=== PATIENT | female | born 1965 | race Caucasian/White ===

== ENCOUNTER 2018-05-19 16:00 | Day surgery (SDC) | payer OTHER ==
[2018-05-18 18:04] VITALS: BMI 29.7
--- NOTE | 2018-05-19 17:16 | OP ---
Operative Note - Note: Operative Date: 05/19/18 Pre-Operative Diagnosis: nuerogenic bladder, vesici-vaginal fistula,rec. uti, gross hematuria,spt dislodgement,tract stenosis Operation: suprapubic dil. cysto, placement of spt. fulgeration Post-Operative Diagnosis: Same as Pre-op Bleach Range Operator: Samia Tenorio Anesthesia: General Specimens Removed: sptract tissue and sp maxwell Estimated Blood Loss (mls): 20 Drains, Volume Out (mls): 0 Blood Volume Replaced (mls): 0 Fluid Volume Replaced (mls): 0 Operative Report Dictated: Yes
[2018-05-19] MEDS ORDERED: ceFAZolin SODIUM 1 GM VIAL IVPB ONE (18:21)
[2018-05-19] MEDS ORDERED: ONDANSETRON 4 MG/2 ML VIAL IVPUSH PRN (18:42)
[2018-05-19] MEDS: MORPHINE SULFATE 2 MG/ML VIAL IVPUSH PRN ×3 (18:45→19:15)
[2018-05-19 20:09] VITALS: PULSE 98
[2018-05-19 20:57] VITALS: BP 117/64; TEMP 98.7
--- NOTE | 2018-07-21 11:59 | OP ---
DATE OF OPERATION: 05/19/2018 SURGEON: Samia Tenorio MD PREOPERATIVE DIAGNOSES: Neurogenic bladder, vesicovaginal fistula, recurrent urinary tract infection, gross hematuria, dislodgement of suprapubic tract. OPERATIVE PROCEDURE: Suprapubic tract debridement, suprapubic dilatation, suprapubic Hill placement. ANESTHESIA: General. DESCRIPTION OF PROCEDURE: Under above-stated anesthesia, patient was prepped and draped in the usual sterile manner. She was placed in the supine position. An elliptical incision was made over the suprapubic tract. This was carried down through skin and subcutaneous tissue. The necrotic tract was removed at the level of the fascia. The fascial defect was repaired with 2-0 Vicryl suture ligatures. A stab incision was made in the bladder, and a 24-[place] Hill was placed into the dome of the bladder. Pursestring suture was used to anchor the Hill at the dome of the bladder. The subcutaneous tissue was closed with 3-0 Vicryl suture ligature. The skin was closed with jesus. The bladder irrigation was good. The patient tolerated the procedure well. She returned to the recovery room in good condition. Vaughn [id number]
== END 2018-05-19 20:55 | disposition home or self-care (01) ==
LOC: JASU-SURG 16:00
PROVIDERS: ATTEND Urology
PROC: 0T9B00Z Drainage of Bladder with Drainage Device, Open Approach (ICD-10-PCS; principal; 2018-05-19 15:30)
DX: T83.028A Displacement of other urinary catheter, initial encounter (principal); N31.8 Other neuromuscular dysfunction of bladder; N39.0 Urinary tract infection, site not specified; R31.0 Gross hematuria; N82.0 Vesicovaginal fistula
CPT/HCPCS: 51710; C2627; 82962; 94760

== ENCOUNTER 2023-01-19 14:36 | Inpatient (IN) | payer OTHER ==
[2023-01-19 15:13] VITALS: BMI 27.4
[2023-01-19 16:14] LABS: BASO % 0.2 % (0-2.0); EOS % 0.2 % (0-4.5); HEMATOCRIT 30.9 % (32.4-45.2); HEMOGLOBIN 10.5 GM/dL (10.7-15.3); LYMPH % 15.4 % (8-40); MCH 29.1 pg (25.7-33.7); MEAN CELL VOLUME 85.7 fl (80-96); MEAN PLT VOLUME 7.3 fl (7.5-11.1); MONO % 5.3 % (3.8-10.2); NEUT % 78.9 % (42.8-82.8); PLATELET COUNT 355 10^3/uL (134-434); RBC 3.61 M/mm3 (3.60-5.2); RDW 15.8 % (11.6-15.6)
[2023-01-19 16:24] LABS: INR 1.38 (0.83-1.09); PROTHROMBIN TIME (PATIENT) 15.9 SEC (9.7-13.0)
[2023-01-19 16:27] LABS: ACTIVATED PTT 34.6 SECONDS (25.2-36.5)
[2023-01-19 16:41] LABS: URINE APPEARANCE TURBID; URINE BILIRUBIN NEGATIVE (NEGATIVE); URINE COLOR YELLOW; URINE GLUCOSE (UA) NEGATIVE (NEGATIVE); URINE KETONE NEGATIVE (NEGATIVE); URINE LEUK ESTERASE 4+ (NEGATIVE); URINE NITRITE NEGATIVE (NEGATIVE); URINE PROTEIN 100 (NEGATIVE)
[2023-01-19 16:42] LABS: EPI CELLS 239.5 /uL (0-25.1); HYALINE CASTS 883.12 /uL (0-3.1); URINE BACTERIA 9952.4 /uL (0-1359); URINE RBC 666.2 /uL (0-23.9); URINE WBC 35961.5 /uL (0-25.8)
[2023-01-19 17:09] LABS: POTASSIUM 5.5 mmol/L (3.5-5.1)
[2023-01-19 17:14] LABS: CALCIUM 8.6 mg/dL (8.5-10.1)
[2023-01-19 17:15] LABS: ALBUMIN 2.2 g/dl (3.4-5.0); BLOOD UREA NITROGEN 37.4 mg/dL (7-18)
[2023-01-19 17:17] LABS: CREATININE 1.5 mg/dL (0.55-1.3)
[2023-01-19 17:19] LABS: BILIRUBIN,TOTAL 0.5 mg/dL (0.2-1); TOT PROT 10.4 g/dl (6.4-8.2)
[2023-01-19] MEDS ORDERED: CEFTRIAXONE 1,000 MG in DEXTROSE 5%-WATER - 50 ML IVPB ONE (17:27)
[2023-01-19] MEDS ORDERED: CEFTRIAXONE 1 GM/50 ML BAG ONE (18:00)
[2023-01-19] MEDS ORDERED: ACETAMINOPHEN 325 MG TABLET (FP) PO PRN (18:19)
[2023-01-19] MEDS ORDERED: SODIUM CHLORIDE 1,000 ML IV STA (18:21)
[2023-01-19] MEDS: LACTATED RINGERS SOLUTION 1,000 ML/1,000 ML INFUS.BAG IV SCH (18:40)
[2023-01-19] MEDS: INSULIN SLIDING SCALE (NOVOLOG) 1 VIAL SQ SCH (18:50)
[2023-01-19 19:00] LABS: POTASSIUM 3.8 mmol/L (3.5-5.1)
[2023-01-19 19:01] LABS: CALCIUM 8.6 mg/dL (8.5-10.1)
[2023-01-19 19:02] LABS: BLOOD UREA NITROGEN 41.3 mg/dL (7-18)
[2023-01-19 19:05] LABS: CREATININE 1.5 mg/dL (0.55-1.3)
[2023-01-19] MEDS ORDERED: BACITRACIN 0.9 GM PACKET ONE (21:44)
[2023-01-19] MEDS ORDERED: ATORVASTATIN CA 40 MG TABLET (FP) ONE (21:44)
[2023-01-19] MEDS ORDERED: TOPIRAMATE 100 MG TABLET ONE (21:44)
[2023-01-19] MEDS ORDERED: HEPARIN NA (PORCINE) 5,000 UNITS/ML 1ML VIAL ONE (21:45)
[2023-01-19] MEDS ORDERED: ATORVASTATIN CA 40 MG TABLET (FP) PO SCH (22:00)
[2023-01-19] MEDS ORDERED: INSULIN (LEVEMIR) 100 UNITS/ML UNITS SQ SCH (22:00)
[2023-01-19] MEDS: HEPARIN NA (PORCINE) 5,000 UNITS/ML 1ML VIAL SQ SCH (22:16)
[2023-01-19] MEDS: BACITRACIN ZINC 15 GM TUBE TOPICAL OINTMENT TP SCH (22:16)
[2023-01-19] MEDS: TOPIRAMATE 200 MG TABLET PO SCH (22:17)
[2023-01-19] MEDS: OXcarbazepine 300 MG TABLET (UD) PO SCH (22:17)
[2023-01-19] MEDS ORDERED: traMADol HCL 50 MG TABLET ONE (22:21)
[2023-01-19] MEDS: traMADol HCL 50 MG TABLET PO PRN (22:27)
[2023-01-20] MEDS ORDERED: ACETAMINOPHEN 1000 MG/100 ML BAG IVPB ONE (06:22)
[2023-01-20] MEDS ORDERED: ACETAMINOPHEN INJECTION 100 ML IVPB ONE (06:34)
[2023-01-20] MEDS: BACITRACIN ZINC 15 GM TUBE TOPICAL OINTMENT TP SCH (06:38)
[2023-01-20] MEDS: INSULIN SLIDING SCALE (NOVOLOG) 1 VIAL SQ SCH ×3 (06:38→17:06)
[2023-01-20 08:21] LABS: BASO % 0.2 % (0-2.0); EOS % 0.2 % (0-4.5); HEMATOCRIT 27.1 % (32.4-45.2); HEMOGLOBIN 9.2 GM/dL (10.7-15.3); LYMPH % 8.3 % (8-40); MCH 28.9 pg (25.7-33.7); MCHC 33.8 g/dl (32.0-36.0); MEAN CELL VOLUME 85.6 fl (80-96); MONO % 6.9 % (3.8-10.2); NEUT % 84.4 % (42.8-82.8); PLATELET COUNT 306 10^3/uL (134-434); RBC 3.17 M/mm3 (3.60-5.2); RDW 15.8 % (11.6-15.6); WHITE BLOOD COUNT 8.4 K/mm3 (4.0-10.0)
[2023-01-20 09:53] LABS: IRON SERUM 17 ug/dL (50-175)
[2023-01-20 09:54] LABS: TOTAL IRON BINDING CAPACITY 184 ug/dL (250-450)
[2023-01-20] MEDS ORDERED: CEFTRIAXONE 1 GM in DEXTROSE 5%-WATER - 50 ML IVPB SCH (10:00)
[2023-01-20] MEDS ORDERED: MULTIVITAMINS (DAILY MVI) TABLET (FP) PO SCH (10:00)
[2023-01-20] MEDS ORDERED: ASPIRIN COATED 81 MG TABLET.EC PO SCH (10:00)
[2023-01-20] MEDS ORDERED: FAMOTIDINE 20 MG TABLET PO SCH (10:00)
[2023-01-20] MEDS ORDERED: PIPERACILLIN/TAZOB 3.375 GM 3.375 GM in DEXTROSE 5%-WATER - 50 ML IVPB SCH ×2 (10:00→18:00)
[2023-01-20] MEDS ORDERED: FENOFIBRIC ACID 135 MG CAP PO SCH (10:00)
[2023-01-20] MEDS: traMADol HCL 50 MG TABLET PO PRN (10:02)
[2023-01-20] MEDS: OXcarbazepine 300 MG TABLET (UD) PO SCH (10:05)
[2023-01-20] MEDS: TOPIRAMATE 200 MG TABLET PO SCH (10:05)
[2023-01-20] MEDS ORDERED: ACETAMINOPHEN 325 MG TABLET (FP) PO PRN ×2 (10:17→20:10)
[2023-01-20] MEDS ORDERED: COLLAGENASE CLOSTRIDIUM HIST. 30 GRAMS TUBE TP SCH (10:30)
[2023-01-20 12:30] LABS: EPI CELLS 35 /uL (0-25.1); HYALINE CASTS 10 /uL (0-3.1); PH,URINE 6.5 (5.0-8.0); URINE APPEARANCE TURBID; URINE BACTERIA 2552 /uL (0-1359); URINE BILIRUBIN NEGATIVE (NEGATIVE); URINE COLOR YELLOW; URINE GLUCOSE (UA) NEGATIVE (NEGATIVE); URINE KETONE NEGATIVE (NEGATIVE); URINE LEUK ESTERASE 3+ (NEGATIVE); URINE NITRITE POSITIVE (NEGATIVE); URINE PROTEIN 2+ (NEGATIVE); URINE WBC 14119 /uL (0-25.8)
[2023-01-20 12:41] LABS: URINE RBC 519 /uL (0-23.9)
[2023-01-20 14:43] VITALS: RESP 20
[2023-01-20] MEDS ORDERED: DEXTROSE 50%-WATER 25 GM/50 ML DISP.SYRIN ONE (16:50)
[2023-01-20] MEDS ORDERED: DEXTROSE 50%-WATER - 25 GM/50 ML VIAL IVPUSH ONE (17:10)
[2023-01-20] MEDS: HEPARIN NA (PORCINE) 5,000 UNITS/ML 1ML VIAL SQ SCH (18:12)
[2023-01-20] MEDS: LACTATED RINGERS SOLUTION 1,000 ML/1,000 ML INFUS.BAG IV SCH (18:34)
[2023-01-20 20:02] LABS: BASO % 0.1 % (0-2.0); EOS % 0.4 % (0-4.5); HEMATOCRIT 26.3 % (32.4-45.2); HEMOGLOBIN 8.7 GM/dL (10.7-15.3); LYMPH % 7.4 % (8-40); MCH 28.9 pg (25.7-33.7); MEAN CELL VOLUME 87.7 fl (80-96); MEAN PLT VOLUME 7.6 fl (7.5-11.1); MONO % 5.5 % (3.8-10.2); NEUT % 86.6 % (42.8-82.8); PLATELET COUNT 258 10^3/uL (134-434); RDW 16.1 % (11.6-15.6)
[2023-01-20] MEDS ORDERED: traMADol HCL 50 MG TABLET PO PRN (20:10)
[2023-01-20] MEDS ORDERED: LACTATED RINGERS SOLUTION 1,000 ML/1,000 ML INFUS.BAG IV SCH (20:10)
[2023-01-20 20:24] LABS: POTASSIUM 3.6 mmol/L (3.5-5.1)
[2023-01-20 20:27] LABS: BLOOD UREA NITROGEN 25.4 mg/dL (7-18); CALCIUM 7.6 mg/dL (8.5-10.1)
[2023-01-20 20:31] LABS: CREATININE 1.3 mg/dL (0.55-1.3)
[2023-01-20 20:51] LABS: LACTIC ACID 2.2 mmol/L (0.4-2.0)
[2023-01-20] MEDS ORDERED: SODIUM CHLORIDE 500 ML IV STA ×2 (21:10→23:29)
[2023-01-20] MEDS ORDERED: TOPIRAMATE 100 MG TABLET PO SCH (22:00)
[2023-01-20] MEDS ORDERED: ATORVASTATIN CA 40 MG TABLET (FP) PO SCH (22:00)
[2023-01-20] MEDS ORDERED: OXcarbazepine 300 MG TABLET (UD) PO SCH (22:00)
[2023-01-20 23:19] VITALS: PULSE 93
[2023-01-21 01:47] VITALS: BP 135/57; TEMP 98.4
[2023-01-21] MEDS ORDERED: PIPERACILLIN/TAZOB 3.375 GM 3.375 GM in DEXTROSE 5%-WATER - 50 ML IVPB SCH (02:00)
[2023-01-21] MEDS ORDERED: INSULIN SLIDING SCALE (NOVOLOG) 1 VIAL SQ SCH (07:00)
[2023-01-21] MEDS ORDERED: FAMOTIDINE 20 MG TABLET PO SCH (10:00)
[2023-01-21] MEDS ORDERED: ASPIRIN COATED 81 MG TABLET.EC PO SCH (10:00)
[2023-01-21] MEDS ORDERED: MULTIVITAMINS (DAILY MVI) TABLET (FP) PO SCH (10:00)
[2023-01-21] MEDS ORDERED: COLLAGENASE CLOSTRIDIUM HIST. 30 GRAMS TUBE TP SCH (10:00)
[2023-01-21] MEDS ORDERED: FENOFIBRIC ACID 135 MG CAP PO SCH (10:00)
== END 2023-01-21 01:47 | disposition short-term general hospital (02) | DRG 463 ==
LOC: JER 14:36 → JERBED 17:28 → J7W 01-20 01:55 → J4S 01-20 17:52
PROVIDERS: ADMIT Internal Medicine; ATTEND Internal Medicine
DX: N13.6 Pyonephrosis (principal); E03.9 Hypothyroidism, unspecified; E11.9 Type 2 diabetes mellitus without complications; G81.94 Hemiplegia, unspecified affecting left nondominant side; R53.2 Functional quadriplegia; G93.41 Metabolic encephalopathy; K21.9 Gastro-esophageal reflux disease without esophagitis; K59.00 Constipation, unspecified; I25.10 Atherosclerotic heart disease of native coronary artery without angina pectoris; E55.9 Vitamin D deficiency, unspecified; G40.909 Epilepsy, unspecified, not intractable, without status epilepticus; E78.5 Hyperlipidemia, unspecified; N31.9 Neuromuscular dysfunction of bladder, unspecified; J90 Pleural effusion, not elsewhere classified; R50.9 Fever, unspecified
CPT/HCPCS: 36415; 70450-TC; 71045-TC-FY; 74176-TC; 80048; 80053; 80201; 81003; 82962; 83036; 83540; 83550; 83605; 83690; 84443; 84484; 85025; 85610; 85730; 86850; 86900; 86901; 87040; 87086; 87186; 87635; 93005; 93010; 99285-25; J1644

== ENCOUNTER 2023-07-07 08:13 | Inpatient (IN) | payer OTHER ==
[2023-07-07 08:26] VITALS: BMI 22.3
[2023-07-07] MEDS ORDERED: PIPERACILLIN/TAZOB 3.375 GM 3.375 GM/50 ML BAG IVPB ONE (08:39)
[2023-07-07] MEDS ORDERED: ACETAMINOPHEN INJECTION 100 ML IVPB ONE (08:39)
[2023-07-07] MEDS: PIPERACILLIN/TAZOB 3.375 GM 3.375 GM in DEXTROSE 5%-WATER - 50 ML IVPB ONE (08:40)
[2023-07-07] MEDS: SODIUM CHLORIDE 1,000 ML IV STA (08:40)
[2023-07-07] MEDS: ACETAMINOPHEN 1000 MG/100 ML BAG IVPB ONE (08:40)
[2023-07-07 08:45] LABS: BASO % 0.4 % (0-2.0); EOS % 0.3 % (0-4.5); HEMATOCRIT 26.8 % (32.4-45.2); HEMOGLOBIN 8.6 GM/dL (10.7-15.3); LYMPH % 11.4 % (8-40); MCH 31.6 pg (25.7-33.7); MEAN CELL VOLUME 98.6 fl (80-96); MEAN PLT VOLUME 6.3 fl (7.5-11.1); MONO % 9.6 % (3.8-10.2); NEUT % 78.3 % (42.8-82.8); PLATELET COUNT 256 10^3/uL (134-434); RBC 2.71 M/mm3 (3.60-5.2); RDW 17.2 % (11.6-15.6)
[2023-07-07 08:48] LABS: VENOUS BASE EXCESS 3.3 mmol/L (-2-2); VENOUS O2 SATURATION 88.1 % (70-80); VENOUS PCO2 45.2 mmHg (38-52); VENOUS PH 7.415 (7.310-7.410)
[2023-07-07 08:51] LABS: INR 1.24 (0.83-1.09); PROTHROMBIN TIME (PATIENT) 14.4 SEC (9.7-13.0)
[2023-07-07 08:54] LABS: ACTIVATED PTT 29.2 SECONDS (25.2-36.5)
[2023-07-07 09:04] LABS: POTASSIUM 4.9 mmol/L (3.5-5.1)
[2023-07-07 09:06] LABS: CALCIUM 8.6 mg/dL (8.5-10.1)
[2023-07-07 09:07] LABS: ALBUMIN 1.6 g/dl (3.4-5.0); BLOOD UREA NITROGEN 53.8 mg/dL (7-18)
[2023-07-07 09:10] LABS: CREATININE 1.2 mg/dL (0.55-1.3)
[2023-07-07 09:11] LABS: BILIRUBIN,TOTAL 0.4 mg/dL (0.2-1); TOT PROT 9.7 g/dl (6.4-8.2)
[2023-07-07] MEDS ORDERED: VANCOMYCIN 1 GRAM (PRE-DOCKED) 1,000 MG/250 ML BAG IVPB ONE (09:56)
[2023-07-07] MEDS: VANCOMYCIN 1,000 MG in DEXTROSE 5%-WATER - 250 ML IVPB ONE (09:56)
[2023-07-07] MEDS: SODIUM CHLORIDE 0.9% 500 ML INFUS.BAG IV ONE ×2 (11:12→14:08)
[2023-07-07] MEDS ORDERED: ACETAMINOPHEN 1000 MG/100 ML BAG IVPB PRN (14:33)
[2023-07-07 15:16] LABS: LACTIC ACID 2.6 mmol/L (0.4-2.0)
[2023-07-07] MEDS: SODIUM CHLORIDE 1,000 ML IV SCH (15:47)
[2023-07-07] MEDS ORDERED: MEROPENEM 1 GM VIAL (RESTRICTED TO ID) IVPB ONE (16:58)
[2023-07-07] MEDS: MEROPENEM 1 GM in DEXTROSE 5%-WATER 100 ML IVPB SCH (17:01)
[2023-07-07] MEDS: INSULIN ASPART SLIDING SCALE (NOVOLOG) 1 VIAL SQ SCH (17:26)
[2023-07-07] MEDS ORDERED: MEROPENEM 1 GM in DEXTROSE 5%-WATER 100 ML IVPB SCH (18:00)
[2023-07-07] MEDS ORDERED: FUROSEMIDE 40 MG/4 ML INJECTABLE VIAL ONE (18:52)
[2023-07-07] MEDS: FUROSEMIDE 40 MG/4 ML INJECTABLE VIAL IVPUSH ONE (18:52)
[2023-07-07] MEDS: METOPROLOL TARTRATE 5 MG/5 ML VIAL IVPUSH ONE (22:00)
[2023-07-07] MEDS ORDERED: METOPROLOL TARTRATE 5 MG/5 ML VIAL ONE (22:19)
[2023-07-07] MEDS: HEPARIN NA (PORCINE) 5,000 UNITS/ML 1ML VIAL SQ SCH (22:22)
[2023-07-08] MEDS ORDERED: METOPROLOL TARTRATE 5 MG/5 ML VIAL ONE (01:58)
[2023-07-08] MEDS: METOPROLOL TARTRATE 5 MG/5 ML VIAL IVPUSH ONE (01:59)
[2023-07-08 05:31] VITALS: BP 51/27; PULSE 84; RESP 22; TEMP 101.7
== END 2023-07-08 06:56 | disposition expired | DRG 720 ==
LOC: JER 08:13 → JERBED 12:46
PROVIDERS: ADMIT Internal Medicine; ATTEND Internal Medicine
DX: A41.89 Other specified sepsis (principal); L89.154 Pressure ulcer of sacral region, stage 4; J18.9 Pneumonia, unspecified organism; I69.354 Hemiplegia and hemiparesis following cerebral infarction affecting left non-dominant side; G82.20 Paraplegia, unspecified; Z68.22 Body mass index [BMI] 22.0-22.9, adult; R64 Cachexia; I10 Essential (primary) hypertension; E11.9 Type 2 diabetes mellitus without complications; E03.9 Hypothyroidism, unspecified; E78.5 Hyperlipidemia, unspecified; R56.9 Unspecified convulsions; R50.9 Fever, unspecified; K21.9 Gastro-esophageal reflux disease without esophagitis; E55.9 Vitamin D deficiency, unspecified; K59.00 Constipation, unspecified; N31.9 Neuromuscular dysfunction of bladder, unspecified; I47.10 Supraventricular tachycardia, unspecified
CPT/HCPCS: 0241U-QW; 36415; 70450-TC; 71045-TC-FY; 71250-TC; 74176-TC; 80053; 82550; 82803; 82962; 83605; 84484; 85025; 85610; 85730; 86850; 86900; 86901; 87040; 93005; 93010; 99285-25; J0131; J1644